=== PATIENT | female | born 1955 | race Caucasian/White ===

== ENCOUNTER → 2021-09-19 | Outpatient (CLI) | payer MEDICARE | LOC: MHCPAIN 09:45 | DX: M51.16 Intervertebral disc disorders with radiculopathy, lumbar region (principal); M79.2 Neuralgia and neuritis, unspecified; E11.9 Type 2 diabetes mellitus without complications ==

== ENCOUNTER → 2021-09-27 | Outpatient (CLI) | payer MEDICARE | LOC: MHCPAIN 10:47 | DX: M47.816 Spondylosis without myelopathy or radiculopathy, lumbar region (principal); M53.3 Sacrococcygeal disorders, not elsewhere classified; M54.16 Radiculopathy, lumbar region | CPT/HCPCS: J1100; Q9967 ==

== ENCOUNTER → 2021-10-12 | Outpatient (CLI) | payer MEDICARE | LOC: MHCPAIN 10:18 | DX: M51.16 Intervertebral disc disorders with radiculopathy, lumbar region (principal); M54.59 Other low back pain; M79.2 Neuralgia and neuritis, unspecified; E11.9 Type 2 diabetes mellitus without complications | CPT/HCPCS: G0463 ==

== ENCOUNTER → 2021-11-27 | Outpatient (CLI) | payer MEDICARE | LOC: MHCPAIN 11:09 | DX: M79.2 Neuralgia and neuritis, unspecified (principal); M51.16 Intervertebral disc disorders with radiculopathy, lumbar region; M47.816 Spondylosis without myelopathy or radiculopathy, lumbar region; M54.59 Other low back pain | CPT/HCPCS: G0463 ==

== ENCOUNTER 2022-05-13 21:10 | Observation (INO) | payer MEDICARE ==
[~2022-05-13] VITALS: Ht 167.6 cm; Wt 112.8 kg
--- NOTE | 2022-05-13 21:49 | NUR ---
Arrived to medical unit via EMS at this time.
[2022-05-13 21:54] VITALS: BP 137/75; PULSE 90; TEMP 98
[2022-05-13] MEDS ORDERED: FARXIGA10 PO (21:57)
[2022-05-13] MEDS ORDERED: ZESTORETIC 12.51 TA1 PO (21:57)
[2022-05-13] MEDS ORDERED: GLUCOTROL XL10 MG PO (21:57)
[2022-05-13] MEDS ORDERED: LOFIBRA54 MG PO (21:58)
[2022-05-13] MEDS ORDERED: LYRICA 150MG C150 MG PO (21:58)
[2022-05-13] MEDS ORDERED: BASAGLAR K100 UNIT/1 SQ (21:58)
[2022-05-13] MEDS ORDERED: VICTOZA6 MG/ML SQ (21:59)
--- NOTE | 2022-05-13 22:47 | NUR ---
Patient alert and oriented, and able to make needs known. Reports mild pain to left back rated as a 2-3. Peripheral INT to right AC and left forearm. Has Heparin drip running to left forearm. Running at 1300 units/hr, started around 1745. Patient aware that she will be NPO after midnight in case cardiology wants to do any procedures. Voiced understanding. Voices no further questions, needs, or concerns at this time. In bed with call light within reach.
[2022-05-13 23:43] VITALS: BP 110/57; PULSE 82; TEMP 97.8
[2022-05-14 02:00] VITALS: BP 124/68; PULSE 78; TEMP 98
--- NOTE | 2022-05-14 02:35 | NUR ---
Patient had troponin of 29, and showed ST elevated on EKG. Patient transfered to [facility] in [place]. Refused [facility] due to billing, but willing to go via EMS. [facility] came and picked patient up at approximately 0220. Report called to [facility] [employer] at [phone].
== END 2022-05-14 02:20 | disposition critical access hospital (66) ==
LOC: MEDICAL 21:10
PROVIDERS: ADMIT Internal Medicine
DX: R07.9 Chest pain, unspecified (principal); M54.89 Other dorsalgia; I10 Essential (primary) hypertension; E78.5 Hyperlipidemia, unspecified; E11.40 Type 2 diabetes mellitus with diabetic neuropathy, unspecified; Z79.84 Long term (current) use of oral hypoglycemic drugs; Z79.899 Other long term (current) drug therapy; Z79.4 Long term (current) use of insulin
CPT/HCPCS: G0378; G0379; J1644; J1815

== ENCOUNTER → 2022-06-04 | Outpatient (CLI) | payer MEDICARE ==
[~2022-06-04] MED LIST: BASAGLAR K100 UNIT/1 SQ; FARXIGA10 PO; GLUCOTROL XL10 MG PO; LOFIBRA54 MG PO; LYRICA 150MG C150 MG PO; VICTOZA6 MG/ML SQ; ZESTORETIC 12.51 TA1 PO
== END ==
LOC: MHCPAIN 10:13
DX: M51.16 Intervertebral disc disorders with radiculopathy, lumbar region (principal); M79.2 Neuralgia and neuritis, unspecified; M53.3 Sacrococcygeal disorders, not elsewhere classified
CPT/HCPCS: G0463

== ENCOUNTER → 2023-04-24 | Outpatient (CLI) | payer MEDICARE | LOC: MHCPAIN 10:13 | DX: M51.16 Intervertebral disc disorders with radiculopathy, lumbar region (principal); M79.2 Neuralgia and neuritis, unspecified; M53.3 Sacrococcygeal disorders, not elsewhere classified | CPT/HCPCS: G0463 ==